=== PATIENT | male | born 1975 | race Caucasian/White ===

== ENCOUNTER 2022-08-12 07:51 | Day surgery (SDC) | payer SELFPAY ==
[2022-08-12] VITALS (13 sets, daily range): BP systolic 122–162; BP diastolic 76–97; PULSE 55–69; RESP 16–18; TEMP 36.1–36.7; O2SAT 93–99; BMI 30.7
--- NOTE | ~2022-08-12 | CT_ITS ---
EXAMINATION: CT ABDOMEN AND PELVIS WITH CONTRAST CLINICAL INFORMATION: Left lower quadrant pain, palpable mass. COMPARISON: None TECHNIQUE: Multidetector volumetric images were obtained from the superior aspect of the liver through the pubic symphysis following administration 85 mL of Omnipaque 350 intravenous contrast. Sagittal and coronal reformatted images were obtained on the technologist's workstation. Oral contrast: No This CT examination was performed using dose optimization techniques as appropriate, variously including the following: *Automated exposure control *Adjustment of mA and/or kV according to patient size (this includes techniques or standardized protocols for targeted exams where dose is matched to indication/reason for exam; i.e. extremities or head) *Use of iterative reconstruction technique DLP: 667 mGy-cm FINDINGS: LUNG BASES: The visualized lung bases are unremarkable. LIVER, GALLBLADDER, AND BILIARY TREE: Unremarkable. PANCREAS: Unremarkable. SPLEEN: Unremarkable. ADRENAL GLANDS: Unremarkable. KIDNEYS AND URETERS: The kidneys are normal in size, shape, and attenuation. No hydronephrosis, hydroureter, or calculi seen. No perinephric stranding. BLADDER: Unremarkable. GASTROINTESTINAL TRACT: The stomach and small bowel unremarkable. The appendix is not calculi identified. No evidence for acute appendicitis. The colon shows mild diverticulosis distally in the descending and sigmoid colon without surrounding abnormality. The rectum is unremarkable. ABDOMINAL WALL: There is a small fat-containing left spigelian hernia measuring approximately 4.3 x 3.0 x 3.2 cm (image 52, series 3; image 27, series 6). Very small fat-containing umbilical hernia. LYMPH NODES: Normal. VASCULAR: Unremarkable. PELVIC VISCERA: Unremarkable. OSSEOUS STRUCTURES: Mild to moderate multilevel marginal osteophyte formation most pronounced at the 1112 L4-5. Round lucency seen posterior superiorly at T12 with narrow zone of transition. CT/CT abdomen pelvis w IV con IMPRESSION: 1. Small fat-containing left spigelian hernia correlating with patient's symptoms. No associated bowel loops. Surgical consultation is recommended. 2. Mild distal colonic diverticulosis without evidence for acute diverticulitis.
--- NOTE | 2022-08-12 09:24 | ED_ITS ---
HPI - Abdominal Pain General Chief Complaint: Abdominal Pain Stated Complaint: abd pain growth in abd Time Seen by Provider: 08/12/22 09:19 Source: patient Mode of arrival: ambulatory Limitations: no limitations History of Present Illness HPI narrative: 47 yo male no sig PMH reports normal colonoscopy other than diverticulosis 5 years ago no fam hx of colon cancer has had mass in LLQ for 6+ months, developed LLQ pain last night. Some nausea. Has had intermittent blood on toilet paper after BMs. He denies any other symptoms MD elicited complaint: abdominal pain Pertinent past history: none Onset (ago): day(s) (last night ) Pain Consistency: constant Location: LLQ Severity: severe Quality: stabbing Migration to: no migration Exacerbating factors: movement Relieving factors: nothing Context: other (mass felt in abdomen) Associated symptoms: nausea and hematochezia Related Data Home Medications Medication Instructions Recorded Confirmed cholecalciferol (vitamin D3) 25 25 mcg PO DAILY 08/12/22 08/12/22 mcg (1,000 unit) tablet cyanocobalamin (vitamin B-12) 1,000 mcg PO DAILY 08/12/22 08/12/22 1,000 mcg tablet omeprazole 20 mg capsule,delayed 20 mg PO BID@0630,1630 08/12/22 08/12/22 release quetiapine 100 mg tablet (Seroquel) 100 mg PO BEDTIME 08/12/22 08/12/22 Allergies Allergy/AdvReac Type Severity Reaction Status Date / Time propranolol Allergy Unknown may have Verified 08/12/22 15:08 lowered heart rate toomuch as per patient Review of Systems Review of Systems Constitutional : No Weight loss, No Fever, No Chills ENT/Mouth : No sore throat, No Rhinorrhea Eyes: No Swelling, No Redness Cardiovascular : No Chest Pain, No SOB, NoEdema Respiratory : No Cough, No Sputum, No Wheezing Gastrointestinal : Positive Nausea, no Vomiting, no Diarrhea, positive abdominal Pain, pos intermittent Hematochezia, No Melena Genitourinary : No Dysuria, No Urinary Frequency, No Hematuria, No Urgency Musculoskeletal : No joint pain, No Myalgias, No Joint Swelling Skin : No Skin Lesions, No rash Neuro : No Weakness, No Numbness, No Dizziness, No Headache Psych : No Anxiety/Panic, No Depression Heme/Lymph: No Bruising, No Lymphadenopathy Endocrine : No Polyuria, No Polydipsia All other systems reviewed and are negative. [facility] Past Medical History Attestation statement: The following information was validated with the patient. Medical History No pertinent past medical history Surgical History S/P appendectomy Social History Social History Patient Tobacco Use Status: Never used Tobacco Use of substances other than those prescribed or required for medical reasons: Yes Substance Use Type Other:: vaping marijuana Are you DNR?: No Advance Directives: No Advance Directives Information Provided: No Physical Exam ED Vital Signs: Vital Signs - 24 hr 08/12/22 09:17 08/12/22 11:08 08/12/22 12:43 Temperature 97 F 98.0 F Pulse Rate 61 56 Respiratory Rate 16 18 Blood Pressure 154/91 H 157/92 H Pulse Oximetry 96 96 Oxygen Delivery Method Room Air Room Air 08/12/22 14:54 Temperature 98 F Pulse Rate 55 Respiratory Rate 18 Blood Pressure 147/84 H Pulse Oximetry 97 Oxygen Delivery Method Room Air BMI result Body Mass Index 30.7 Appearance: Alert. Oriented X3. in pain, mild acute distress. Eyes: Pupils equal, round and reactive to light. ENT: Pharynx normal. Neck: Normal inspection. Neck supple. CVS: Normal heart rate and rhythm. Pulses normal. Respiratory: No respiratory distress. Breath sounds normal. Abdomen: Soft and moderate LLQ pain no rebound, there is a palpable mass felt in LLQ not assocated with the groin Skin: Skin warm and dry. Normal skin color. Normal skin turgor. Extremities: No lower extremity edema. No calf ttp Neuro: Oriented X 3. No motor deficit. No sensory deficit. Course Course Course Narrative: will notify general surgery 1156pm - Dr. Collins to admit patient MDM - Abdominal Pain MDM Narrative Medical decision making narrative: 47 yo male wtih hx of diverticulosis comes in with LLQ pain and a palpable mass with intermittent bloody stools, at this time labs, CT scan for mass/colitis/diverticulitis ordered. IV dilaudid for pain. Dispo per results and findings. Lab Data Result diagrams: 08/12/22 10:18 08/12/22 10:18 Labs: Lab Results 08/12/22 08/12/22 08/12/22 Range/Units 10:18 10:18 10:18 WBC 8.2 (4.8-10.8) X10*3/uL RBC 4.84 (4.60-5.80) X10*6/uL Hgb 14.0 (14.0-18.0) g/dl Hct 42.0 (42.0-52.0) % MCV 86.8 (80.0-98.0) fL MCH 28.9 (27.0-33.0) pg MCHC 33.3 (31.0-36.0) g/dl RDW 12.9 (11.0-16.0) % Plt Count 226 (160-400) X10*3/uL MPV 10.1 (9.4-12.4) fL Immature Gran % (Auto) 0.4 (0.0-0.4) % Neut % (Auto) 62.0 (45-73) % Lymph % (Auto) 27.8 (20-40) % [place] % (Auto) 8.0 (2-11) % Eos % (Auto) 1.2 (0-4) % Baso % (Auto) 0.6 (0-2) % Lymph # (Auto) 2.3 (1.2-4.9) X10*3/uL [place] # (Auto) 0.7 (0.1-1.2) X10*3/uL Eos # (Auto) 0.1 (0.0-0.4) X10*3/uL Baso # (Auto) 0.1 (0.0-0.2) X10*3/uL Abs Immat Gran (auto) 0.03 (0.00-0.03) X10*3/uL Absolute Neuts (auto) 5.1 (2.0-8.3) x10*3/uL Absolute Nucleated RBC 0.000 (0.0-0.012) X10*3/uL Nucleated RBC % (auto) 0.0 (0.0-0.2) /100WBC PT 12.4 (10.0-13.1) SEC INR 1.1 (0.9-1.1) Sodium 139 (135-145) mmol/L Potassium 4.5 (3.3-5.1) mmol/L Chloride 107 (96-108) mmol/L Carbon Dioxide 27 (22-29) mmol/L Anion Gap 10 L (12-20) BUN 14 (9-16) mg/dL Creatinine 0.81 (0.5-1.4) mg/dL Estim Creat Clear Calc 116.0 Estimated GFR > 60 Random Glucose 97 (60-115) mg/dL Lactic Acid (0.5-2.0) mmol/L Calcium 8.5 (8.4-10.2) mg/dL Magnesium 1.8 (1.6-2.6) mg/dL Total Bilirubin 0.5 (0.0-1.0) mg/dL Direct Bilirubin 0.2 (0.0-0.5) mg/dL AST 21 (5-37) U/L ALT 25 (0-40) U/L Alkaline Phosphatase 107 (39-117) U/L Total Protein 6.2 L (6.5-8.0) g/dL Albumin 3.7 (3.5-5.0) g/dL Lipase 29 (8-78) U/L Urine Color Urine Appearance Urine pH (5.0-9.0) Ur Specific [place] (1.005-1.025) Urine Protein (Neg-Trace) mg/dL Urine Glucose (UA) (Negative) mg/dL Urine Ketones (Negative) mg/dL Urine Blood (Negative) Urine Nitrite (Negative) Ur Leukocyte Esterase (Negative) Urine RBC (0-2) /HPF Urine WBC (0-5) /HPF Ur Squamous Epith Cells (0-2) /HPF Urine Bacteria (None Seen) Hyaline Casts (0-2) /LPF COVID-19 (TAVO) (Negative) COVID-19 Clin Com 08/12/22 08/12/22 08/12/22 Range/Units 10:18 10:18 11:11 WBC (4.8-10.8) X10*3/uL RBC (4.60-5.80) X10*6/uL Hgb (14.0-18.0) g/dl Hct (42.0-52.0) % MCV (80.0-98.0) fL MCH (27.0-33.0) pg MCHC (31.0-36.0) g/dl RDW (11.0-16.0) % Plt Count (160-400) X10*3/uL MPV (9.4-12.4) fL Immature Gran % (Auto) (0.0-0.4) % Neut % (Auto) (45-73) % Lymph % (Auto) (20-40) % [place] % (Auto) (2-11) % Eos % (Auto) (0-4) % Baso % (Auto) (0-2) % Lymph # (Auto) (1.2-4.9) X10*3/uL [place] # (Auto) (0.1-1.2) X10*3/uL Eos # (Auto) (0.0-0.4) X10*3/uL Baso # (Auto) (0.0-0.2) X10*3/uL Abs Immat Gran (auto) (0.00-0.03) X10*3/uL Absolute Neuts (auto) (2.0-8.3) x10*3/uL Absolute Nucleated RBC (0.0-0.012) X10*3/uL Nucleated RBC % (auto) (0.0-0.2) /100WBC PT (10.0-13.1) SEC INR (0.9-1.1) Sodium (135-145) mmol/L Potassium (3.3-5.1) mmol/L Chloride (96-108) mmol/L Carbon Dioxide (22-29) mmol/L Anion Gap (12-20) BUN (9-16) mg/dL Creatinine (0.5-1.4) mg/dL Estim Creat Clear Calc Estimated GFR Random Glucose (60-115) mg/dL Lactic Acid 0.8 (0.5-2.0) mmol/L Calcium (8.4-10.2) mg/dL Magnesium (1.6-2.6) mg/dL Total Bilirubin (0.0-1.0) mg/dL Direct Bilirubin (0.0-0.5) mg/dL AST (5-37) U/L ALT (0-40) U/L Alkaline Phosphatase (39-117) U/L Total Protein (6.5-8.0) g/dL Albumin (3.5-5.0) g/dL Lipase (8-78) U/L Urine Color Yellow Urine Appearance Clear Urine pH 8.0 (5.0-9.0) Ur Specific [place] 1.015 (1.005-1.025) Urine Protein Negative (Neg-Trace) mg/dL Urine Glucose (UA) Negative (Negative) mg/dL Urine Ketones Negative (Negative) mg/dL Urine Blood Negative (Negative) Urine Nitrite Negative (Negative) Ur Leukocyte Esterase Trace H (Negative) Urine RBC 0-2 (0-2) /HPF Urine WBC 0-5 (0-5) /HPF Ur Squamous Epith Cells 0-2 (0-2) /HPF Urine Bacteria None Seen (None Seen) Hyaline Casts 0-2 (0-2) /LPF COVID-19 (TAVO) Negative (Negative) COVID-19 Clin Com See Note Discharge Plan Discharge Clinical Impression: Spigelian hernia Abdominal pain Qualifiers: Abdominal location: left lower quadrant Qualified Code(s): R10.32 - Left lower quadrant pain Patient Disposition: Admitted As Inpatient
[2022-08-12] MEDS: HYDROmorphone HCl 0.5 MG/0.5 ML SYRINGE IVPUSH (09:40)
[2022-08-12] MEDS: 0.9 % Sodium Chloride 1,000 ML 999 ML IVCONT (09:41)
[2022-08-12] MEDS: ondansetron HCL 4 MG/2 ML VIAL IVPUSH (09:41)
--- NOTE | 2022-08-12 09:52 | PC.NURSE ---
patient a/ox4 . mis . heart rate regular at 80 betas per minute . breathing even unlabored , lungs clear in all quadrants . skin pink warm and dry . abdomen , distended . positive bowel sounds in all four quadrants . palpable mass in lower left quadrant . rebound tenderness noted 10 out of 10 pain level reported by patient . This mass started about 6 mouths ago . IV placed in left AC and medicated as ordered by provider . patient aware of plan of care .
[2022-08-12 10:24] LABS: MANUAL DIFF FLAG NO
[2022-08-12 10:27] LABS: Basophils Absolute Auto 0.1 X10*3/uL (0.0-0.2); Basophils Percent Auto 0.6 % (0-2); Eosinophils Absolute Auto 0.1 X10*3/uL (0.0-0.4); Eosinophils Percent Auto 1.2 % (0-4); Imm Gran Abs Auto 0.03 X10*3/uL (0.00-0.03); Imm Gran Pct Auto 0.4 % (0.0-0.4); Lymphocytes Absolute Auto 2.3 X10*3/uL (1.2-4.9); Lymphocytes Percent Auto 27.8 % (20-40); Mean Corpuscular HGB Conc 33.3 g/dl (31.0-36.0); Mean Corpuscular Hemoglobin 28.9 pg (27.0-33.0); Mean Corpuscular Volume 86.8 fL (80.0-98.0); Mean Platelet Volume 10.1 fL (9.4-12.4); Monocytes Absolute Auto 0.7 X10*3/uL (0.1-1.2); Neutrophils Absolute Auto 5.1 x10*3/uL (2.0-8.3); Platelet Count 226 X10*3/uL (160-400); Red Blood Count 4.84 X10*6/uL (4.60-5.80); Red Cell Distribution Width 12.9 % (11.0-16.0); White Blood Count 8.2 X10*3/uL (4.8-10.8)
[2022-08-12 10:36] LABS: INTERNATIONAL NORM RATIO 1.1 (0.9-1.1); Prothrombin Time 12.4 SEC (10.0-13.1)
[2022-08-12 10:41] LABS: Lactic Acid 0.8 mmol/L (0.5-2.0)
[2022-08-12 10:43] LABS: COVID-19 Test Negative (Negative)
[2022-08-12 10:52] LABS: Alanine Aminotransferase 25 U/L (0-40); Albumin Level 3.7 g/dL (3.5-5.0); Alkaline Phosphatase 107 U/L (39-117); Anion Gap 10 (12-20); Aspartate Amino Transferase 21 U/L (5-37); Bilirubin Direct 0.2 mg/dL (0.0-0.5); Bilirubin Total 0.5 mg/dL (0.0-1.0); Blood Urea Nitrogen 14 mg/dL (9-16); Calcium 8.5 mg/dL (8.4-10.2); Carbon Dioxide 27 mmol/L (22-29); Chloride 107 mmol/L (96-108); Estimated Glomerular Filt Rate > 60; Glucose Random 97 mg/dL (60-115); Lipase 29 U/L (8-78); Magnesium 1.8 mg/dL (1.6-2.6); Potassium 4.5 mmol/L (3.3-5.1); Sodium 139 mmol/L (135-145); Total Protein 6.2 g/dL (6.5-8.0)
--- NOTE | 2022-08-12 10:57 | PC.NURSE ---
Patient ambulated to bathroom ,reports pain level improved from 10 out of 10 to a 4 after medication . patient giving urine sample . patient aware of plan of care .
[2022-08-12 11:23] LABS: Appearance Urine Clear; Color Urine Yellow; Glucose Urine UA Negative (Negative); Leukocyte Esterase Urine Trace (Negative); Nitrite Urine Negative (Negative); Specific Gravity - Urine 1.015 (1.005-1.025); UMIC TRIGGER UACC YES; Urine Blood Negative (Negative); Urine Ketones Negative (Negative); Urine Protein Negative (Neg-Trace)
[2022-08-12 11:35] LABS: Bacteria Urine None Seen (None Seen); Hyaline Casts Urine 0-2 /LPF (0-2); RBC Urine 0-2 /HPF (0-2); Squamous Epithelial Cell Urine 0-2 /HPF (0-2); WBC Urine 0-5 /HPF (0-5)
[2022-08-12] MEDS: iohexoL 350 MG/ML 100 ML INFUS..BTL IV (11:40)
--- NOTE | 2022-08-12 12:37 | P.HPGS_ITS ---
History of Present Illness History of Present Illness Date of Service: 08/12/22 Chief complaint: abd pain growth in abd Narrative: Taco Dial is a 47 year old male Presenting with complaints of left lower quadrant abdominal pain with a tender lump located the left lower quadrant abdo men. This began earlier this morning the pain became more severe through the day. He subsequently presented to the emergency department for further evaluation. He reports a prior history of laparoscopic appendectomy approximately 20 years ago. 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 recently. He denies any recent injury. He reports nausea without vomiting but denies fever or chills. Presentation to the emergency department he was noted to have a tender lump in the left lower quadrant which was non reducible. CT abdomen and pelvis confirmed a spigelian h ernia in the left lower quadrant. Admitted to the surgical service for further management of this hernia. Review of Systems Review of Systems: Yes all other systems are reviewed and are negative Constitutional: Constitutional: Denies chills, Denies fever(s), Denies headache(s), Denies poor appetite and Denies weakness ENT: Denies headache(s) Cardiovascular: Cardiovascular: Denies chest pain, Denies irregular heart rhythm, Denies palpitations and Denies dyspnea Respiratory: Respiratory: Denies cough, Denies excessive phlegm production and Denies dyspnea Gastrointestinal: Gastrointestinal: Reports as per HPI, Reports abdominal pain, Denies bloating, Denies change in bowel habits, Denies constipation, Denies heartburn, Denies diarrhea, Reports nausea and Denies vomiting Genitourinary: Genitourinary: Denies difficulty urinating and Denies urinary frequency Musculoskeletal: Musculoskeletal: Denies back pain, Denies muscle weakness and Denies numbness Integumentary/Breasts: Skin/Breast: Denies changing lesions and Denies unusual bruising Neurologic: Denies headache(s), Denies numbness, Denies paresthesias and Denies weakness Psychiatric: Psychiatric: Denies anxiety and Denies depression Endocrine: Endocrine: Denies palpitations Hematologic/Lymphatic: Hematologic/Lymphatic: Denies lymphadenopathy [facility] Past Medical History Medical History No pertinent past medical history Surgical History Surgical History S/P appendectomy Social History Social History Patient Tobacco Use Status: Never used Tobacco Advance Directives: No Advance Directives Information Provided: No Meds Allergies Allergy/AdvReac Type Severity Reaction Status Date / Time propranolol Allergy Unknown Verified 02/15/18 00:00 No Known Allergies Allergy Unverified 06/27/20 18:11 [No Known Allergies*] Active Medications: Current Medications Sodium Chloride (Ns) 1,000 mls @ 125 mls/hr IVCONT .Q8H YAZ Physical Exam Vital Signs: Vital Signs: Last Vital Signs Temp 97 F 08/12/22 09:17 Pulse 56 08/12/22 11:08 Resp 18 08/12/22 11:08 BP 157/92 H 08/12/22 11:08 Pulse Ox 96 08/12/22 11:08 O2 Del Method 08/12/22 11:08 BMI result Body Mass Index 30.7 Const: General: cooperative and no acute distress Nutritional Appearance: well nourished Orientation/consciousness: patient oriented x3 Limitations: no limitations HEENT: Head: Yes normocephalic and Yes atraumatic Ears: hearing grossly normal bilaterally Resp: Effort & Inspection: normal respiratory effort, no audible wheezes, no cough and no respiratory distress Cardio: Jugular venous distension: no JVD GI: Inspection: Yes normal to inspection Palpation (GI): Soft to palpation, Tenderness to palpation present (GI), no guarding and not rigid Percussion: Yes normal to percussion Auscultation: normal bowel sounds Rectal Exam - Male: Yes deferred Abdomen image: 1. left lower quadrant palpable lump Skin: Other: Warm, dry, no rash Neuro: General: patient oriented x3 Extrem: General: Yes no clubbing, cyanosis or edema Results Results Labs: Short CBC 08/12/22 Range/Units 10:18 WBC 8.2 (4.8-10.8) X10*3/uL Hgb 14.0 (14.0-18.0) g/dl Hct 42.0 (42.0-52.0) % Plt Count 226 (160-400) X10*3/uL BMP 08/12/22 10:18 Sodium 139 Potassium 4.5 Chloride 107 Carbon Dioxide 27 BUN 14 Creatinine 0.81 Calcium 8.5 Liver Function 08/12/22 Range/Units 10:18 Total Bilirubin 0.5 (0.0-1.0) mg/dL Direct Bilirubin 0.2 (0.0-0.5) mg/dL AST 21 (5-37) U/L ALT 25 (0-40) U/L Alkaline Phosphatase 107 (39-117) U/L Albumin 3.7 (3.5-5.0) g/dL Urine 08/12/22 Range/Units 11:11 Urine Color Yellow Urine Appearance Clear Urine pH 8.0 (5.0-9.0) Ur Specific [place] 1.015 (1.005-1.025) Urine Protein Negative (Neg-Trace) mg/dL Urine Glucose (UA) Negative (Negative) mg/dL Assessment and Plan (1) Abdominal pain: Qualifiers: Abdominal location: left lower quadrant Qualified Code(s): R10.32 - Left lower quadrant pain Status: Acute (2) Spigelian hernia: Status: Acute Plan 47-year-old male patient presenting with a painful lump in the left lower quadrant associated with nausea without vomiting. On examination there is a tender lump in the left lower quadrant without any associated incision. Findings are suggestive of a spigelian hernia. This was confirmed on CT abdomen and pelvis. I recommended repair of the spigelian hernia possibly with mesh. After discussion of the procedure, risks, and alternatives, he consents to the surgery. He will be added onto the operative schedule. Quality Stroke Does the patient have a stroke diagnosis?: No VTE Prior VTE?: No VTE Risk Level:: Surgical - moderate VTE Device Contraindication: N/A - Device Ordered VTE Drug Contraindication: Treatment Not Indicated Procedures Date of Service Date of Service: 08/12/22
[2022-08-12] MEDS: HYDROmorphone HCl 1 MG/ML SYRINGE IVPUSH (12:42)
[2022-08-12] MEDS: 0.9 % Sodium Chloride 1,000 ML 125 ML IVCONT (12:43)
--- NOTE | 2022-08-12 13:06 | PHA.MEDREC ---
Pharmacy Consult ? Medication Reconciliation Pharmacy has completed the medication reconciliation. sPOKE WITH PATIENT IN THE ED
--- NOTE | 2022-08-12 13:39 | PC.NURSE ---
Surgery at bedside . patient aware of plan to go to short stay for hernia repair today at 3 pm . patient to NPO . patient reports nothing by mouth since 730 am , Haylie short stay nurse given report . patient medicated with 1mg of diluided . patient aware of plan of care .
--- NOTE | 2022-08-12 14:00 | PC.NURSE ---
patient to short stay for procedure . patient aware o fplan of care .
--- NOTE | 2022-08-12 14:41 | HO.ANESPROP2 ---
HPI - Anesthesia Eval Consult details Narrative: 47 M for spigelian hernia repair PMFSH Active Problems Active Problems: All Active Problems (Updated 08/12/22 @ 12:23 by Kailyn Ramírez DO) Abdominal pain (Acute) Spigelian hernia (Acute) Past Medical History Medical History No pertinent past medical history Functional capacity: independent ambulation Family History Family history of problems with anesthesia: No Surgical History Surgical History S/P appendectomy History of Problems with Anesthesia: No Social History Social History Patient Tobacco Use Status: Never used Tobacco Use of substances other than those prescribed or required for medical reasons: Yes Substance Use Type Other:: vaping marijuana Are you DNR?: No Advance Directives: No Advance Directives Information Provided: No Meds Allergies Allergy/AdvReac Type Severity Reaction Status Date / Time propranolol Allergy Unknown may have Verified 08/12/22 15:08 lowered heart rate toomuch as per patient Active Medications: Current Medications Acetaminophen (Acetaminophen 325 Mg Tablet) 650 mg PO Q6H PRN PRN Reason: Pain, Mild (Pain Scale 1-3) Docusate Sodium (Docusate Sodium 100 Mg Capsule) 100 mg PO BID PRN PRN Reason: constipation Sodium Chloride (Ns) 1,000 mls @ 125 mls/hr IVCONT .Q8H [facility] Last Admin: 08/12/22 12:43 Dose: 125 mls/hr Morphine Sulfate (Morphine Sulfate 4 Mg/Ml Cartridge) 4 mg IVPUSH Q4H PRN; Protocol PRN Reason: Pain, Severe (Pain Scale 7-10) Ondansetron HCl (Ondansetron Hcl 4 Mg/2 Ml Vial) 4 mg IVPUSH Q8H PRN PRN Reason: Nausea and Vomiting Oxycodone HCl (Oxycodone Hcl Immed Release 5 Mg Tablet) 5 mg PO Q4H PRN PRN Reason: Pain, Moderate (Pain Scale 4-6 Sodium Chloride (0.9 % Sodium Chloride Flush 3 Ml Syringe) 3 ml IVFLUSH QSHIFT [facility] Home Medications Medication Instructions Recorded Confirmed Last Taken Type cholecalciferol (vitamin D3) 25 25 mcg PO DAILY 08/12/22 08/12/22 08/12/22 History mcg (1,000 unit) tablet cyanocobalamin (vitamin B-12) 1,000 mcg PO DAILY 08/12/22 08/12/22 08/12/22 History 1,000 mcg tablet omeprazole 20 mg capsule,delayed 20 mg PO BID@0630,1630 08/12/22 08/12/22 08/12/22 History release quetiapine 100 mg tablet (Seroquel) 100 mg PO BEDTIME 08/12/22 08/12/22 08/11/22 History Exam Exam Date and Time: August 12, 2022 1441 Height,Weight and Vital Signs: Height 5 ft 6 in Weight 86.183 kg Last Vital Signs Temp 98.0 F 08/12/22 12:43 Pulse 56 08/12/22 11:08 Resp 18 08/12/22 11:08 BP 157/92 H 08/12/22 11:08 Pulse Ox 96 08/12/22 11:08 O2 Del Method 08/12/22 11:08 Pertinent Lab Results Pertinent Lab Results: Laboratory Tests 08/12/22 08/12/22 08/12/22 10:18 10:18 10:18 WBC 8.2 RBC 4.84 Hgb 14.0 Hct 42.0 MCV 86.8 MCH 28.9 MCHC 33.3 RDW 12.9 Plt Count 226 MPV 10.1 Immature Gran % (Auto) 0.4 Neut % (Auto) 62.0 Lymph % (Auto) 27.8 [place] % (Auto) 8.0 Eos % (Auto) 1.2 Baso % (Auto) 0.6 Lymph # (Auto) 2.3 [place] # (Auto) 0.7 Eos # (Auto) 0.1 Baso # (Auto) 0.1 Abs Immat Gran (auto) 0.03 Absolute Neuts (auto) 5.1 Absolute Nucleated RBC 0.000 Nucleated RBC % (auto) 0.0 PT 12.4 INR 1.1 Sodium 139 Potassium 4.5 Chloride 107 Carbon Dioxide 27 Anion Gap 10 L BUN 14 Creatinine 0.81 Estim Creat Clear Calc 116.0 Estimated GFR > 60 Random Glucose 97 Lactic Acid Calcium 8.5 Magnesium 1.8 Total Bilirubin 0.5 Direct Bilirubin 0.2 AST 21 ALT 25 Alkaline Phosphatase 107 Total Protein 6.2 L Albumin 3.7 Lipase 29 Urine Color Urine Appearance Urine pH Ur Specific [place] Urine Protein Urine Glucose (UA) Urine Ketones Urine Blood Urine Nitrite Ur Leukocyte Esterase Urine RBC Urine WBC Ur Squamous Epith Cells Urine Bacteria Hyaline Casts COVID-19 (TAVO) COVID-19 Clin Com 08/12/22 08/12/22 08/12/22 10:18 10:18 11:11 WBC RBC Hgb Hct MCV MCH MCHC RDW Plt Count MPV Immature Gran % (Auto) Neut % (Auto) Lymph % (Auto) [place] % (Auto) Eos % (Auto) Baso % (Auto) Lymph # (Auto) [place] # (Auto) Eos # (Auto) Baso # (Auto) Abs Immat Gran (auto) Absolute Neuts (auto) Absolute Nucleated RBC Nucleated RBC % (auto) PT INR Sodium Potassium Chloride Carbon Dioxide Anion Gap BUN Creatinine Estim Creat Clear Calc Estimated GFR Random Glucose Lactic Acid 0.8 Calcium Magnesium Total Bilirubin Direct Bilirubin AST ALT Alkaline Phosphatase Total Protein Albumin Lipase Urine Color Yellow Urine Appearance Clear Urine pH 8.0 Ur Specific [place] 1.015 Urine Protein Negative Urine Glucose (UA) Negative Urine Ketones Negative Urine Blood Negative Urine Nitrite Negative Ur Leukocyte Esterase Trace H Urine RBC 0-2 Urine WBC 0-5 Ur Squamous Epith Cells 0-2 Urine Bacteria None Seen Hyaline Casts 0-2 COVID-19 (TAVO) Negative COVID-19 Clin Com See Note Airway Mallampati Class: III Neck ROM: Full Denture: Upper Loose/Missing/Broken Teeth: Yes Heart: S1,S2 Lungs: b/l breath sounds Assessment and Plan Assessment Anesthesia Assessment: Anesthesia Plan Discussed and Chart Reviewed Final Anesthetic Review Family History of Problems with Anesthesia: No History of Problems with Anesthesia: No NPO: Yes ASA Class: II and Emergency Final Preanesthetic Review: Meds/Allgs Chart Reviewed, Consent Obtained/Reviewed and Anes Risks/Benef Reviewed Patient Risk: Intermediate Procedure Risk: Intermediate Anesthetic Plan Anesthetic Plan: GA Disposition: Standard PACU
--- NOTE | 2022-08-12 16:11 | W.PM.OPN ---
Operative Note Operative Note Date of Service: 08/12/22 Narrative: Preoperative diagnosis: Spigelian hernia left Postoperative diagnosis: same Procedure: repair of spigelian hernia with Surgeon: Moise Collins MD Flat Knitter Helper: Angelina Hernadez PA-C, JULIA Lal Anesthesia: general LMA Indications for procedure: 47-year-old male patient presenting with a palpable mass in the left lower quadrant tender to palpation. CT revealed a spigelian hernia left abdomen. Operative findings: Spigelian hernia containing omental fat with no bowel. Specimen: Hernia contents (omentum) Estimated blood loss: 10 mL Complications: none Procedure details: patient brought the OR placed in a supine position. After administering general anesthesia the patient's abdomen was prepped with ChloraPrep and draped in a sterile fashion. A surgical time-out was performed. Consent was confirmed. Patient received preoperative antibiotics and Venodyne boots were in place. Local anesthesia consisting of Sensorcaine 0.5% with epinephrine was then infiltrated over the palpable hernia. Incision was then made with a scalpel carried out through subcutaneous tissue up to the hernia sac. Hernia sac was then dissected down to the fascial defect. A tight defect was noted measuring approximately 1.5 cm in diameter. The fat fascial edge was opened using electrocautery. Sac was entered and omental fat noted within the hernia sac. This was freed from the surrounding peritoneal sac and excised using electrocautery. The hernia sac was then returned to the abdominal cavity. The external and internal oblique aponeurosis was then . There appeared to be scar tissue between the 2 suggestive of a prior incision at this location. The posterior sheath was closed using interrupted 1 Tycron sutures. A small Ventralex mesh measuring 4.3 cm was then placed above the internal oblique aponeurosis. The external aponeurosis was then closed over the mesh using interrupted 1 Tycron sutures in a [id number] fashion. The mesh was incorporated into the closure. Wounds were then irrigated with saline solution suctioned dry. Rachel's fascia and dermis were then reapproximated using interrupted 3-0 Polysorb sutures. Skin was closed using a running subcuticular 4-0 Polysorb suture. Steri-Strips, 2 x 2 gauze and Tegaderm were then applied. The patient tolerated the procedure well. Sponge, instrument, needle counts reported as correct. Patient was transferred to PACU in stable condition.
[2022-08-12] MEDS: HYDROmorphone HCl 0.5 MG/0.5 ML SYRINGE 0.25 MG IVPUSH ×2 (16:48→17:09)
[2022-08-12] MEDS: oxyCODONE HCl Immed Release 5 MG TABLET PO (17:00)
--- NOTE | 2022-08-12 18:13 | PC.NURSE ---
PATIENT AMBULATED TO BATHROOM STEADY GAIT VOIDX1. MONITORS OFF I AM READY TO GO HOME DRESSING AT BEDSIDE
== END 2022-08-12 18:45 | disposition home or self-care (01) ==
LOC: HO.ED 12:29 → HO.SSS 13:08 → HO.S3 17:06 → HO.SSS 17:06
PROVIDERS: Surgery; Emergency Provider Emergency Medicine; PCP Family Medicine; Visit Provider Physician Assistant Surgical
PROC: (CPT 49560; principal; 2022-08-12 15:00)
DX: K43.9 Ventral hernia without obstruction or gangrene (principal); K57.30 Diverticulosis of large intestine without perforation or abscess without bleeding; F12.90 Cannabis use, unspecified, uncomplicated; Z79.899 Other long term (current) drug therapy; Z88.8 Allergy status to other drugs, medicaments and biological substances; Z90.49 Acquired absence of other specified parts of digestive tract; Z20.822 Contact with and (suspected) exposure to COVID-19
CPT/HCPCS: 49560; 49568; 36415; 74177; 80048; 80076; 81001; 83605; 83690; 83735; 85025; 85610; 87635; 88302; 96361; 96374; 96375; 96376; 99284; 99285; C1781; C9088; J0131; J0690; J1100; J1170; J2250; J2405; J2795; J3010; Q9967

== ENCOUNTER → 2022-08-27 09:21 | Outpatient (BNVA) | payer SELFPAY | PROVIDERS: PCP Family Medicine; Visit Provider Physician Assistant Surgical | DX: Z09 Encounter for follow-up examination after completed treatment for conditions other than malignant neoplasm (principal); K43.9 Ventral hernia without obstruction or gangrene; Z98.890 Other specified postprocedural states | CPT/HCPCS: 99212 ==

== ENCOUNTER 2023-04-15 13:59 | Outpatient (REF) | payer OTHER, SELFPAY ==
[2023-04-15 17:30] LABS: Erythrocyte Sedimentation Rate 2 MM/HR (0-15)
[2023-04-19 19:08] LABS: Immunoglobulin A 257 mg/dL (47-310)
[2023-04-20 14:28] LABS: Endomysial IgA Antibody Negative (Negative)
[2023-04-22 13:53] LABS: Transglutaminase Ab IgG <1.0 U/mL; Transglutaminase IgA <1.0 U/mL
[2023-04-23 14:47] LABS: Gliadin Deamidated IgA Ab <1.0 U/mL; Gliadin Deamidated IgG Ab <1.0 U/mL
== END 2023-04-15 14:00 | disposition home or self-care (01) ==
LOC: HO.LAB 13:59
PROVIDERS: PCP Internal Medicine; Visit Provider Internal Medicine
DX: R19.8 Other specified symptoms and signs involving the digestive system and abdomen (principal)
CPT/HCPCS: 36415; 82784; 85652; 86140; 86231; 86258; 86364

== ENCOUNTER 2023-05-31 11:53 | Day surgery (SDC) | payer OTHER, SELFPAY ==
--- NOTE | 2023-05-27 12:05 | P.CONAN_ITS ---
Documented by User: Viki Silverio NP 05/27/23 12:07 HPI - Anesthesia Eval Consult details Narrative: 47yo M for Upper Endoscopy and Colonoscopy s/p hernia repair 08/2022 [facility] Active Problems Active Problems: All Active Problems (Updated 08/20/22 @ 00:05 by Ann De Jesus) S/P spigelian hernia repair, follow-up exam (Acute) Past Medical History Medical History Bipolar depression GERD (gastroesophageal reflux disease) HTN (hypertension) Hx of sleep apnea Spigelian hernia Tonsil cancer Family History Family history of problems with anesthesia: No Surgical History Surgical History History of ventral hernia repair Hx of colonoscopy Hx of tonsillectomy S/P appendectomy History of Problems with Anesthesia: No Social History Social History Patient Tobacco Use Status: Former Tobacco user Quit Date: 14 YRS AGO Use of substances other than those prescribed or required for medical reasons: Yes Substance Use Frequency: Daily Are you DNR?: No Advance Directives: No Advance Directives Information Provided: Yes Meds Allergies Allergy/AdvReac Type Severity Reaction Status Date / Time propranolol Allergy Unknown may have Verified 08/27/22 09:34 lowered heart rate toomuch as per patient Home Medications Medication Instructions Recorded Confirmed Last Taken Type cholecalciferol (vitamin D3) 25 25 mcg PO DAILY 08/12/22 05/31/23 08/12/22 History mcg (1,000 unit) tablet cyanocobalamin (vitamin B-12) 1,000 mcg PO DAILY 08/12/22 05/31/23 08/12/22 History 1,000 mcg tablet omeprazole 20 mg capsule,delayed 20 mg PO BID@0630,1630 08/12/22 05/31/23 08/12/22 History release quetiapine 100 mg tablet (Seroquel) 100 mg PO BEDTIME 08/12/22 05/31/23 08/11/22 History Exam Exam Date and Time: May 27, 2023 1205 Assessment and Plan Assessment Anesthesia Assessment: Chart Reviewed Final Anesthetic Review Family History of Problems with Anesthesia: No History of Problems with Anesthesia: No Documented by User: Jessy Woodward MD 05/31/23 13:29 PMFSH Past Medical History Medical History Bipolar depression GERD (gastroesophageal reflux disease) HTN (hypertension) Hx of sleep apnea Spigelian hernia Tonsil cancer Surgical History Surgical History History of ventral hernia repair Hx of colonoscopy Hx of tonsillectomy S/P appendectomy Social History Social History Patient Tobacco Use Status: Former Tobacco user Quit Date: 14 YRS AGO Use of substances other than those prescribed or required for medical reasons: Yes Substance Use Frequency: Daily Are you DNR?: No Advance Directives: No Advance Directives Information Provided: Yes Meds Allergies Allergy/AdvReac Type Severity Reaction Status Date / Time propranolol Allergy Unknown may have Verified 08/27/22 09:34 lowered heart rate toomuch as per patient Home Medications Medication Instructions Recorded Confirmed Last Taken Type cholecalciferol (vitamin D3) 25 25 mcg PO DAILY 08/12/22 05/31/23 08/12/22 History mcg (1,000 unit) tablet cyanocobalamin (vitamin B-12) 1,000 mcg PO DAILY 08/12/22 05/31/23 08/12/22 History 1,000 mcg tablet omeprazole 20 mg capsule,delayed 20 mg PO BID@0630,1630 08/12/22 05/31/23 08/12/22 History release quetiapine 100 mg tablet (Seroquel) 100 mg PO BEDTIME 08/12/22 05/31/23 08/11/22 History Exam Airway Mallampati Class: II (edentulous upper) TM Dist: >3cm Neck ROM: Full Denture: Upper Loose/Missing/Broken Teeth: Yes and Upper Heart: RRR Lungs: CTA Assessment and Plan Assessment Anesthesia Assessment: Anesthesia Plan Discussed Final Anesthetic Review NPO: Yes ASA Class: II Final Preanesthetic Review: Meds/Allgs Chart Reviewed, Consent Obtained/Reviewed and Anes Risks/Benef Reviewed Patient Risk: Low Procedure Risk: Intermediate Anesthetic Plan Anesthetic Plan: MAC: Disposition: Standard PACU
[2023-05-31 13:06] VITALS: BMI 30.7
[2023-05-31 13:25] VITALS: BP 158/87; PULSE 56; RESP 16; TEMP 36.1; O2SAT 97
[2023-05-31] MEDS: Lactated Ringers 1,000 ML 100 ML IVCONT (13:33)
[2023-05-31 14:56] VITALS: BP 134/90; PULSE 63; RESP 16; TEMP 36.2; O2SAT 97
--- NOTE | 2023-05-31 15:03 | P.BOP_ITS ---
Brief Operative Note Date of Service: 05/31/23 Pre-op diagnosis: GERD, Abdominal pain, Screening Post-op diagnosis: other (Hiatal hernia, GERD, R/O celiac disease, R/O microscopic colitis, Diverticulosis) Procedure: EGD with biopsies, Colonoscopy to the cecum and TI with biopsies Surgeon: Taco Romero Anesthesia: MAC Was an Jackhammer Splitter Operator used for this Procedure?: No Estimated blood loss (mL): 2.0 Pathology: other (A. Descending duodenum B. Gastric antrum C. EG Junction at 36cm D. Ascending colon E. Descending colon) Condition: stable Disposition: PACU
[2023-05-31 15:11] VITALS: BP 129/74; PULSE 46; RESP 16; O2SAT 98
[2023-05-31 15:23] VITALS: BP 154/98; PULSE 48; RESP 16; O2SAT 99
[2023-05-31 15:38] VITALS: BP 165/96; PULSE 43; RESP 18; TEMP 36.1; O2SAT 100
--- NOTE | 2023-06-01 02:03 | OP_ITS ---
DATE OF SERVICE: 05/31/2023 SURGEON: Taco Romero MD INDICATIONS: The patient presents for evaluation of gastroesophageal reflux, abdominal discomfort, irregular bowel movements, and colorectal cancer screening. Full consent has been obtained from him for both procedures, including risks of bleeding and perforation. PREOPERATIVE DIAGNOSIS: POSTOPERATIVE DIAGNOSIS: PROCEDURE PERFORMED: Esophagogastroduodenoscopy with biopsies, and colonoscopy to the cecum and terminal ileum with biopsies. ESTIMATED BLOOD LOSS: COMPLICATIONS: ANESTHESIA: Monitored anesthesia care. ASSISTANTS: SPECIMENS: PREOPERATIVE DIAGNOSES: Gastroesophageal reflux, colorectal cancer screening, irregular bowel movements, abdominal pain. POSTOPERATIVE DIAGNOSES: Gastroesophageal reflux, colorectal cancer screening, irregular bowel movements, abdominal pain, hiatal hernia, rule out celiac disease, rule out gastritis and/or H pylori, rule out microscopic colitis, mild diverticulosis, minimal internal hemorrhoids. DESCRIPTION OF PROCEDURE: The patient was placed in the left lateral decubitus position. The Olympus video gastroscope was passed in the posterior oropharynx and upper esophagus under direct vision. The scope was passed slowly to the distal esophagus. The gastroesophageal junction appeared at 36 cm. The gastroesophageal junction did appear slightly irregular, consistent with reflux, but there was no esophagitis nor any definitive Rodriguez mucosa. There was a small hiatal hernia. The scope was advanced to the pylorus and the duodenum was cannulated to the descending portion. The duodenum including the bulb appeared normal without mass or ulceration. Biopsies were obtained from the 2nd and 3rd portions of duodenum. The scope was withdrawn back in the stomach. The gastric antrum had some very minimal areas of erythema, but no erosions or ulceration. There was good peristalsis. Biopsies were obtained from the antrum. The scope was retroflexed visualizing the proximal stomach carefully, which appeared normal, without any sign of mass or ulceration. The scope was straightened and withdrawn back to the esophagus. Biopsies were obtained at the EG junction at 36 cm. Proximal to this, the esophageal mucosa appeared normal. Scope was withdrawn from the patient. He was turned around for the colonoscopy. The digital rectal exam revealed no abnormalities. The Olympus video pediatric colonoscope was entered into the rectum and advanced easily to the cecum. Once in the cecum, I did identify normal-appearing cecal pouch with appendiceal orifice and a normal-appearing ileocecal valve. The majority of the cecum was well visualized, although portions did have some residual old undigested food that was moved around and irrigated as best as possible but did not clear completely. I was able to cannulate the terminal ileum for least 5 to 10 cm, and this appeared normal. There was no sign of any ileitis. The scope was withdrawn back in the colon. The ileocecal valve appeared normal. The scope was then slowly withdrawn assessing all mucosal surfaces carefully. For the most part, the majority of the colon was able to be visualized very well, but there were other parts that had some residual undigested food that could not be cleared away completely and thus obscuring some visualization. I did not visualize any sign of polyps, colitis, nor angiodysplasia. Random biopsies were obtained in the ascending and descending colon. There was a mild amount of sigmoid diverticulosis. In the rectum, scope was retroflexed visualizing internal hemorrhoids, but no other pathology. The rectal mucosa appeared normal. The scope was straightened and withdrawn from the patient. He tolerated both procedures well and was returned to the recovery area in stable condition. IMPRESSION: 1. Small hiatal hernia, gastroesophageal reflux. 2. Mild diverticulosis. 3. Small internal hemorrhoids. 4. Rule out celiac disease. 5. Rule out gastritis and/or Helicobacter pylori. 6. Rule out microscopic colitis. PLAN: The results of the biopsies will be checked. He was advised to continue his omeprazole for reflux relief and to continue his hyoscyamine antispasmodic and relief of the irritable bowel syndrome. Given the somewhat limited prep in the colon, I would recommend a repeat colonoscopy in 5 years rather than 10. He was advised to see me again later in the year for a followup visit but to call sooner as needed. Overall, I do suspect his diagnosis is that of reflux and irritable bowel syndrome as there was no evidence of any inflammatory bowel disease nor any other significant pathology. This has been discussed with his . MD MIGUEL Jon/TASNEEM / [id number] ERIC
== END 2023-05-31 16:07 | disposition home or self-care (01) ==
PROVIDERS: PCP Family Medicine; Visit Provider Internal Medicine
PROC: (CPT 45380; principal; 2023-05-31 13:20)
DX: Z12.11 Encounter for screening for malignant neoplasm of colon (principal); K57.30 Diverticulosis of large intestine without perforation or abscess without bleeding; K64.8 Other hemorrhoids; K44.9 Diaphragmatic hernia without obstruction or gangrene; K21.9 Gastro-esophageal reflux disease without esophagitis; I10 Essential (primary) hypertension; R10.30 Lower abdominal pain, unspecified; Z79.899 Other long term (current) drug therapy
CPT/HCPCS: 45380; 43239; 88305; 88342; J2250